=== PATIENT | female | born 1960 | race Hispanic/Latino ===

== ENCOUNTER 2017-08-31 10:39 | Observation (INO) | payer OTHER ==
[2017-08-31 10:40] VITALS: BMI 22.7
--- NOTE | 2017-08-31 12:03 | ED PDOC ---
Upper Extremity Pain/Injury Time Seen by Provider: 08/31/17 10:55 Chief Complaint (Nursing): Finger,Hand,&Wrist Chief Complaint (Provider): Wrist injury History Per: Patient History/Exam Limitations: no limitations Onset/Duration Of Symptoms: Days (today) Current Symptoms Are (Timing): Still Present Additional Complaint(s): Pt. was walking and accidentally fell on the side walk landing on her left forearm/wrist. Has pain to the wrist. Did not hit her head on the ground. No numbness, tingles. Pt. went home to drop off her stuff and came to the ED. Pt. has no pain elsewhere. Past Medical History Reviewed: Nursing Documentation, Vital Signs Vital Signs: Last Vital Signs Temp 987.6 F H 08/31/17 10:41 Pulse 63 08/31/17 10:41 Resp 16 08/31/17 10:41 BP 123/79 08/31/17 10:41 Pulse Ox 97 08/31/17 10:41 - Medical History PMH: No Chronic Diseases - Surgical History Surgical History: No Surg Hx - Family History Family History: States: Unknown Family Hx - Living Arrangements Living Arrangements: With Family - Social History Current smoker - smoking cessation education provided: No - Allergies Allergies/Adverse Reactions: Allergies Allergy/AdvReac Type Severity Reaction Status Date / Time No Known Allergies Allergy Verified 08/31/17 10:58 Review of Systems Constitutional: Negative for: Weakness Eyes: Negative for: Pain ENT: Negative for: Ear Pain Cardiovascular: Negative for: Chest Pain Respiratory: Negative for: Shortness of Breath Gastrointestinal: Negative for: Nausea, Vomiting Musculoskeletal: Negative for: Neck Pain, Shoulder Pain, Arm Pain, Back Pain, Leg Pain Skin: Negative for: Rash Neurological: Negative for: Weakness, Numbness Physical Exam - Reviewed Vital Signs Reviewed: Yes - Physical Exam Appears: Positive for: Non-toxic, No Acute Distress Head Exam: Positive for: ATRAUMATIC, NORMAL INSPECTION, NORMOCEPHALIC Neck: Positive for: Normal, Painless ROM, Supple Cardiovascular/Chest: Positive for: Regular Rate, Rhythm Respiratory: Positive for: CNT, Normal Breath Sounds Pulses-Radial (L): 2+ Back: Positive for: Normal Inspection. Negative for: L CVA Tenderness, R CVA Tenderness Extremity: Positive for: Tenderness (L wrist with limited ROM due to pain), Deformity, Other (no tenderness to hand L). Negative for: Pedal Edema Neurologic/Psych: Positive for: Alert, Oriented, Other (sensations intact left hand and wrist) - ECG O2 Sat by Pulse Oximetry: 97 Pulse Ox Interpretation: Normal - Progress ED Course And Treament: 1252: Pt. with fx. Dr. Peñaloza reviewed images on text. Wants admit and possible surgery in AM. Spoke with Dr. Chisholm. Will admit. Procedures - Splinting Location: L wrist Hand-Made Type: orthoglass Splint: volar Pre-Proc Neuro Vasc Exam: normal Post-Proc Neuro Vasc Exam: normal Disposition - Clinical Impression Clinical Impression: Fracture of wrist - Patient ED Disposition Is Patient to be Admitted: Yes Counseled Patient/Family Regarding: Studies Performed, Diagnosis - Disposition Disposition Time: 13:03 Condition: FAIR - POA Present On Arrival: Falls Or Trauma
[2017-08-31] MEDS ORDERED: Sodium Chloride 0.9% 500 ML IV STA (12:51)
--- NOTE | 2017-08-31 13:39 | CP.PCM.HP ---
History of Present Illness - History of Present Illness History of Present Illness: Allergies ; NKDA PMH : none Medications ; None Surgery ; none Family history ; Father had clotting disorder Social history ; Lives in [place] with , works as layout designer, denies smoking or drug abuse, consumes alcohol only socially . ROS ; 14 point review of system negative except above PMD :Dr Clotilde Gilbert Present on Admission - Present on Admission Any Indicators Present on Admission: No Review of Systems - Review of Systems All systems: reviewed and no additional remarkable complaints except Past Patient History - Infectious Disease Hx of Infectious Diseases: None - Tetanus Immunizations Tetanus Immunization: Unknown - Past Medical History & Family History Past Medical History?: No - Past Social History Smoking Status: Never Smoked Chewing Tobacco Use: No Cigar Use: No Alcohol: None Home Situation {Lives}: With Family Domestic Violence: Negative - PSYCHIATRIC Hx Substance Use: No - SURGICAL HISTORY Hx Surgeries: No Meds Allergies/Adverse Reactions: Allergies Allergy/AdvReac Type Severity Reaction Status Date / Time No Known Allergies Allergy Verified 08/31/17 10:58 Physical Exam - Constitutional Appears: Non-toxic, No Acute Distress - Head Exam Head Exam: ATRAUMATIC, NORMAL INSPECTION, NORMOCEPHALIC - Eye Exam Eye Exam: EOMI, Normal appearance, PERRL Pupil Exam: NORMAL ACCOMODATION - ENT Exam ENT Exam: Mucous Membranes Moist, Normal Exam - Neck Exam Neck exam: Positive for: Full Rom, Normal Inspection - Respiratory Exam Respiratory Exam: Clear to Auscultation Bilateral, NORMAL BREATHING PATTERN. absent: Rales, Rhonchi, Wheezes - Cardiovascular Exam Cardiovascular Exam: REGULAR RHYTHM, RRR, +S1, +S2. absent: JVD - GI/Abdominal Exam GI & Abdominal Exam: Normal Bowel Sounds, Soft. absent: Distended, Guarding, Rebound, Tenderness - Rectal Exam Rectal Exam: Deferred - Extremities Exam Extremities exam: Positive for: normal inspection, pedal pulses present. Negative for: calf tenderness, pedal edema Additional comments: left wrist swelling and deformity - Back Exam Back exam: NORMAL INSPECTION - Neurological Exam Neurological exam: Alert, CN II-XII Intact, Oriented x3, Reflexes Normal - Psychiatric Exam Psychiatric exam: Normal Affect, Normal Mood - Skin Skin Exam: Dry, Intact, Normal Color, Warm Results - Vital Signs Recent Vital Signs: Last Vital Signs Temp 987.6 F H 08/31/17 10:41 Pulse 63 08/31/17 10:41 Resp 16 08/31/17 10:41 BP 123/79 08/31/17 10:41 Pulse Ox 97 08/31/17 13:04 - Labs Result Diagrams: 08/31/17 13:37 08/31/17 13:37 - EKG Data EKG shows normal: Sinus rhythm Rate: Normal - EKG Data When Compared to Previous EKG: No Significant Change - Imaging and Cardiology wrist xray Additional comment: Comminuted intra-articular fracture distal radius with volar angulation of the distal fragments. Surrounding soft tissue swelling. Assessment & Plan - Assessment and Plan (Free Text) Assessment: 56 y/o female with no PMH , very active presented to ER for evaluation of pain to left wrist . As per patient she tripped and fell over the curb side hitting the left wrist trying to brake the fall. She denies any trauma to the head or any other part of her body. Denies any LOC. She presented to Er complaining of pain and deformity to left wrist . She denies any chest pain , SOB, palpitations, PND, orthopnea, urinary symptoms or changes in bowel movements. Xray of left wrist showed Comminuted intra- articular fracture distal radius with volar angulation of the distal fragments. Surrounding soft tissue swelling. Patient to be placed under observation in med/surg and ortho to be consulted . 1. Comminuted fracture of distal radius place patient under observation in med/surg Ortho consulted . Plan for OR in AM keep NPO past midnight Pain management EKG , CXR and labs reviewed . patiet is low risk for surgical intervention 2. DVT prophylaxis SCD
[2017-08-31 13:42] LABS: BASO % 0.3 % (0.0-2.0); EOS % 0.6 % (0.0-4.0); HEMOGLOBIN 14.9 g/dL (12.0-16.0); LYMPH # 0.9 K/uL (1.0-4.3); MEAN CORPUSCULAR HEMOGLOBIN 31.7 pg (27.0-31.0); MEAN CORPUSCULAR HGB CONC 33.4 g/dL (33.0-37.0); MEAN PLATELET VOLUME 7.9 fl (7.2-11.7); MONO # 0.3 K/uL (0.0-0.8); MONO % 4.8 % (0.0-10.0); NEUT # 5.4 K/uL (1.8-7.0); NEUT % 80.3 % (50.0-75.0); NRBC % 0.1 % (0.0-0.0); RBC 4.69 Mil/uL (3.80-5.20); RED CELL DISTRIBUTION WIDTH 13.7 % (11.5-14.5); WHITE BLOOD COUNT 6.7 K/uL (4.8-10.8)
[2017-08-31 13:50] LABS: BLOOD UREA NITROGEN 14 mg/dl (7-17); GFR AFRICAN-AMERICAN > 60; GFR NON-AFRICAN AMERICAN > 60
[2017-08-31 13:54] LABS: PROTHROMBIN TIME 10.6 Seconds (9.8-13.1)
[2017-08-31 13:55] LABS: PARTIAL THROMBOPLASTIN TIME 28.7 Seconds (25.6-37.1)
--- NOTE | 2017-08-31 15:19 | RAD ---
PROCEDURE: Left wrist dated 08/31/2017 Four views of the left wrist performed HISTORY: Pain COMPARISON: None. FINDINGS: BONES: Current study reveals a comminuted intra-articular fracture distal left radius with volar angulation of the distal fragments. Tiny corticated density adjacent to the distal ulna styloid with what may represent some mild posttraumatic mineralization. Moderate surrounding soft tissue swelling. 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 Mild triscaphe degenerative osteoarthritis also felt be present. SOFT TISSUES: As above OTHER FINDINGS: None. IMPRESSION: Comminuted intra-articular fracture distal radius with volar angulation of the distal fragments. Surrounding soft tissue swelling. See above discussion for additional details and findings
--- NOTE | 2017-08-31 15:25 | RAD ---
HISTORY: Wrist injury. COMPARISON: No prior. FINDINGS: LUNGS: No active pulmonary disease. Questionable minimal pleural thickening right lung apex PLEURA: As above. No effusion or pneumothorax apparent. CARDIOVASCULAR: Normal. OSSEOUS STRUCTURES: No significant abnormalities. VISUALIZED UPPER ABDOMEN: Normal. OTHER FINDINGS: None. IMPRESSION: No acute consolidation.
[2017-08-31] MEDS ORDERED: Morphine 4 MG/ML VIAL IVP PRN (17:14)
[2017-09-01] MEDS: Sodium Chloride 0.9% 1,000 ML IV SCH ×3 (00:04→20:00)
[2017-09-01 00:26] LABS: SQUAMOUS EPITHIAL < 1 /hpf (0-5); URINE BACTERIA RARE (<OCC); URINE BILIRUBIN NEGATIVE (NEGATIVE); URINE BLOOD NEGATIVE (NEGATIVE); URINE CLARITY SLIGHTY-CLOUDY (Clear); URINE COLOR YELLOW (YELLOW); URINE GLUCOSE (UA) NEG (Normal); URINE LEUKOCYTE ESTERASE NEG Leu/uL (Negative); URINE PROTEIN NEGATIVE (NEGATIVE); URINE UROBILINOGEN 0.2-1.0 mg/dL (0.2-1.0)
[2017-09-01 07:27] LABS: BASO % 0.4 % (0.0-2.0); EOS # 0.1 K/uL (0.0-0.7); EOS % 1.9 % (0.0-4.0); HEMOGLOBIN 13.2 g/dL (12.0-16.0); LYMPH # 1.6 K/uL (1.0-4.3); LYMPH % 26.3 % (20.0-40.0); MEAN CELL VOLUME 94.9 fl (81.0-99.0); MEAN CORPUSCULAR HEMOGLOBIN 32.3 pg (27.0-31.0); MEAN PLATELET VOLUME 8.4 fl (7.2-11.7); MONO # 0.5 K/uL (0.0-0.8); MONO % 8.3 % (0.0-10.0); NEUT # 3.8 K/uL (1.8-7.0); NEUT % 63.1 % (50.0-75.0); RBC 4.08 Mil/uL (3.80-5.20); RED CELL DISTRIBUTION WIDTH 13.8 % (11.5-14.5); WHITE BLOOD COUNT 6.1 K/uL (4.8-10.8)
[2017-09-01] MEDS ORDERED: Midazolam 2 MG/2 ML VIAL ONE (07:36)
[2017-09-01] MEDS ORDERED: Lidocaine 4% (Laryng-O-Jet) Kit MM ONE (07:36)
[2017-09-01] MEDS ORDERED: Propofol 10 mg/ml Inj (20 ML) ONE (07:36)
[2017-09-01] MEDS ORDERED: Succinylcholine 200 mg/10 ml Inj IV ONE (07:36)
[2017-09-01] MEDS ORDERED: Rocuronium 10 mg/ml (5 ml) ONE (07:36)
[2017-09-01] MEDS ORDERED: Ropivacaine 0.5% 30ML IV ONE (07:47)
[2017-09-01] MEDS ORDERED: Bupivacaine HCl 0.5% PF (30 ml) Inj ONE (07:47)
[2017-09-01 07:58] LABS: BLOOD UREA NITROGEN 11 mg/dl (7-17); GFR AFRICAN-AMERICAN > 60; GFR NON-AFRICAN AMERICAN > 60
[2017-09-01] MEDS ORDERED: ceFAZolin IV 2 gm in Dextrose 2 GM/50 ML BAG IVPB ONE (08:01)
[2017-09-01] MEDS ORDERED: ePHEDrine 50 mg/ml Inj ONE (08:44)
--- NOTE | 2017-09-01 09:45 | CARD ---
APPROVED REPORT EKG Measurement Heart [id number] <Conclusion> Sinus bradycardia Otherwise normal ECG artefact present
[2017-09-01] MEDS ORDERED: Dexamethasone 4 mg/1 ml ONE (09:55)
[2017-09-01] MEDS ORDERED: Lactated Ringer's 1,000 ML IV ONE ×2 (10:00→10:05)
--- NOTE | 2017-09-01 10:53 | PCM.SURG1 ---
Surgeon's Initial Post Op Note - Surgeon's Notes Surgeon: Anabela Branch Specialist: YEHUDA Farah Type of Anesthesia: General Endo, Block Regional Anesthesia Administered By: DR Trell BORJA Pre-Operative Diagnosis: Displaced/comminuted/angulated intrarticular fx distal radius Operative Findings: as above with 3 intrarticular fragments Post-Operative Diagnosis: displaced/comminuted/angulated intraarticular dital radius fx. 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 release transevrse carpal ligament( carpal tunnel release). partial median neuirolysis/partial; flexor tenosynovectomy. intraarticular injection. apllx volar splint Specimen/Specimens Removed: synvium/epineurium/ fx callous Estimated Blood Loss: EBL {In ML}: 5 Blood Products Given: N/A Drains Used: No Drains Post-Op Condition: Good Date of Surgery/Procedure: 09/01/17 Time of Surgery/Procedure: 09:10 (829- time in room/[email or web address] indcution time)
[2017-09-01] MEDS ORDERED: Bacitracin OINT 15GM TOP ONE (10:55)
[2017-09-01] MEDS ORDERED: HYDROmorphone 0.5 mg/0.5 ml ISec IVP PRN (11:17)
--- NOTE | 2017-09-01 11:17 | PCM.ANESB4 ---
Infraclavicular Block - Femoral Nerve Block Date of Procedure: 09/01/17 Anesthesiologist: Edwardo Pre-Procedure Diagnosis: Left wrist fracture Post-Procedure Diagnosis: Same Procedure Performed: Brachial Plexus at the Infraclavicular area Left - Procedure Infraclavicular Block: The procedure was explained to the patient that it is for the post-operative pain management. Consent was obtained after a thorough discussion with the patient regarding the benefits and possible complications of local anesthetic block of the brachial plexus at the infraclavicular area. The patient was brought to the operating room and standard monitors were applied. Time-out was held with the circulating nurse to confirm the correct surgery and the appropriate block. After applying oxygen by nasal cannula and administering IV Sedation, patient's head was gently rotated away from the operative ____left___ _ shoulder and the area medial to the coracoid process and inferior to the clavicle was carefully palpated. The ultrasound transducer was then applied to the skin in the transverse plane and the brachial plexus was visualized surrounding the axillary artery and deep to the pectoralis major and minor muscles. After thorough identification, this area was prepped with Betadine solution three times and 1 % Lidocaine was injected subcutaneously for topical anesthesia. At this point, a #21 gauge Stimuplex 4-inch needle was inserted cephalad to the ultrasound transducer and inferior to the clavicle in-plane towards the posterior aspect of the axillary artery. Needle advancement was performed carefully under ultrasound visualization. Nerve stimulator was used and twitch of the affected extremity including fingers, hand, wrist and elbow was obtained at current of __0.4___MA. After repeated negative aspiration, __20___cc of __.5_ __% bupivcaine was injected and this was followed with ___10 ___ cc of ___.5____ % ____ropivacaine . Under ultrasound guidance the local anesthetics were observed surrounding the cords of the brachial plexus. The needle was removed intact and sterile dressing was applied. The patient had stable vital signs, was conscious and in no apparent distress. The patient tolerated the infraclavicular block of the brachial plexus well with stable vital signs was prepared for subsequent surgery.
--- NOTE | 2017-09-01 11:30 | RAD ---
PROCEDURE: Intraoperative Fluoroscopy. HISTORY: Fluoroscopy FINDINGS: Fluoroscopic assistance was provided Please refer to the operative report for additional details.
--- NOTE | 2017-09-01 12:11 | CP.PCM.DIS ---
Provider - Provider Date of Admission: 08/31/17 12:42 Attending physician: Yuval Chisholm MD Time Spent in preparation of Discharge (in minutes): 30 Diagnosis - Discharge Diagnosis (1) Fracture of wrist Status: Acute Hospital Course - Lab Results Lab Results: Most Recent Lab Values WBC 6.1 K/uL (4.8-10.8) 09/01/17 05:10 RBC 4.08 Mil/uL (3.80-5.20) 09/01/17 05:10 Hgb 13.2 g/dL (12.0-16.0) 09/01/17 05:10 Hct 38.7 % (34.0-47.0) 09/01/17 05:10 MCV 94.9 fl (81.0-99.0) 09/01/17 05:10 MCH 32.3 pg (27.0-31.0) H 09/01/17 05:10 MCHC 34.0 g/dL (33.0-37.0) 09/01/17 05:10 RDW 13.8 % (11.5-14.5) 09/01/17 05:10 Plt Count 254 K/uL (130-400) 09/01/17 05:10 MPV 8.4 fl (7.2-11.7) 09/01/17 05:10 Neut % (Auto) 63.1 % (50.0-75.0) 09/01/17 05:10 Lymph % (Auto) 26.3 % (20.0-40.0) 09/01/17 05:10 [place] % (Auto) 8.3 % (0.0-10.0) 09/01/17 05:10 Eos % (Auto) 1.9 % (0.0-4.0) 09/01/17 05:10 Baso % (Auto) 0.4 % (0.0-2.0) 09/01/17 05:10 Neut # (Auto) 3.8 K/uL (1.8-7.0) 09/01/17 05:10 Lymph # (Auto) 1.6 K/uL (1.0-4.3) 09/01/17 05:10 [place] # (Auto) 0.5 K/uL (0.0-0.8) 09/01/17 05:10 Eos # (Auto) 0.1 K/uL (0.0-0.7) 09/01/17 05:10 Baso # (Auto) 0.0 K/uL (0.0-0.2) 09/01/17 05:10 PT 10.6 Seconds (9.8-13.1) 08/31/17 13:37 INR 1.0 (0.9-1.2) 08/31/17 13:37 APTT 28.7 Seconds (25.6-37.1) 08/31/17 13:37 Sodium 142 mmol/l (132-148) 09/01/17 05:10 Potassium 3.7 MMOL/L (3.6-5.0) 09/01/17 05:10 Chloride 105 mmol/L (98-107) 09/01/17 05:10 Carbon Dioxide 26 mmol/L (22-30) 09/01/17 05:10 Anion Gap 15 (10-20) 09/01/17 05:10 BUN 11 mg/dl (7-17) 09/01/17 05:10 Creatinine 0.7 mg/dl (0.7-1.2) 09/01/17 05:10 Est GFR ( Amer) > 60 09/01/17 05:10 Est GFR (Non-Af Amer) > 60 09/01/17 05:10 Random Glucose 90 mg/dL (65-105) 09/01/17 05:10 Calcium 9.0 mg/dL (8.4-10.2) 09/01/17 05:10 Troponin I < 0.0120 ng/mL (0.00-0.120) 08/31/17 13:37 Urine Color Yellow (YELLOW) 09/01/17 00:07 Urine Clarity Slighty-cloudy (Clear) 09/01/17 00:07 Urine pH 5.0 (5.0-8.0) 09/01/17 00:07 Ur Specific [place] 1.025 (1.003-1.030) 09/01/17 00:07 Urine Protein Negative mg/dL (NEGATIVE) 09/01/17 00:07 Urine Glucose (UA) Neg mg/dL (Normal) 09/01/17 00:07 Urine Ketones Negative mg/dL (NEGATIVE) 09/01/17 00:07 Urine Blood Negative (NEGATIVE) 09/01/17 00:07 Urine Nitrate Negative (NEGATIVE) 09/01/17 00:07 Urine Bilirubin Negative (NEGATIVE) 09/01/17 00: Urine Urobilinogen 0.2-1.0 mg/dL (0.2-1.0) 09/01/17 00:07 Ur Leukocyte Esterase Neg Tam/uL (Negative) 09/01/17 00:07 Urine RBC (Auto) 4 /hpf (0-3) H 09/01/17 00:07 Urine Microscopic WBC 4 /hpf (0-5) 09/01/17 00: Ur Squamous Epith Cells < 1 /hpf (0-5) 09/01/17 00: Urine Bacteria Rare (<OCC) 09/01/17 00: - Hospital Course Hospital Course: 56 y/o female with no PMH , very active presented to ER for evaluation of pain to left wrist . As per patient she tripped and fell over the curb side hitting the left wrist trying to brake the fall. She denies any trauma to the head or any other part of her body. Denies any LOC. She presented to Er complaining of pain and deformity to left wrist . She denies any chest pain , SOB, palpitations, PND, orthopnea, urinary symptoms or changes in bowel movements. Xray of left wrist showed Comminuted intra- articular fracture distal radius with volar angulation of the distal fragments. Surrounding soft tissue swelling. Patient to be placed under observation in med/surg and ortho to be consulted . s/p repair with Dr. Peñaloza. Doing well post op, stable to discharge home, to follow up with PCP in one week as well as ortho. Discharge Exam - Head Exam Additional comments: Vitals Reviewed GEN: WDWN, alert, cooperative HEENT: NCAT, PERRL, EOMI HEART: RRR, +S1S2, NO MRG LUNG: CTAB, NO WRR ABD: soft, NT, ND, No HSM, No masses EXT: normal pedal pulses, normal capillary refill NEURO: awake, alert, no focal deficits SKIN: warm, dry PSYCH: normal mood, normal affect Discharge Plan - Follow Up Plan Condition: FAIR Disposition: HOME/ ROUTINE Additional Instructions: follow up with ortho and pcp in one week
--- NOTE | 2017-09-01 14:30 | RAD ---
PROCEDURE: Left wrist dated 09/01/2017 Three views of the left wrist performed HISTORY: Status post ORIF left wrist COMPARISON: None. FINDINGS: BONES: Current study reveals ORIF changes comminuted fracture distal left radius. Sideplate and screws have been attached to the volar aspect of the left radius there is adequate alignment JOINTS: Joint spaces preserved. SOFT TISSUES: Soft expected postoperative changes including soft tissue swelling and a small amount subcutaneous air present. OTHER FINDINGS: None. IMPRESSION: Status post ORIF comminuted fracture distal radius as above with expected postoperative changes in the surrounding soft tissues
[2017-09-01] MEDS: Pantoprazole 40 mg EC Tab PO SCH (16:00)
--- NOTE | 2017-09-01 17:27 | OP ---
PROCEDURE DATE: 09/01/2017 SURGEON: Watson Peñaloza MD CUTTER OUT: Tessa Joiner, certified registered nursing sound assistant. ANESTHESIA: General endotracheal and regional block anesthesia. ANESTHESIA ADMINISTERED BY: Dr. Trell Brooke. PREOPERATIVE DIAGNOSIS: Displaced comminuted angulated intra-articular fracture of the distal radius, at least three intra-articular fragments. OPERATIVE FINDINGS: Displaced comminuted angulated intra-articular fracture of the left distal radius with three intra-articular fragments. POSTOPERATIVE DIAGNOSES: 1. Median nerve compression and post-traumatic carpal tunnel syndrome. 2. Displaced angulated distal radius fracture with three intra-articular fragments. 3. Carpal tunnel syndrome post-traumatic. OPERATION PERFORMED: 1. ORIF, displaced comminuted three-part intra-articular distal radius fracture. 2. Release of transverse carpal ligament, carpal tunnel release. 3. Partial median neurolysis. 4. Partial flexor tenosynovectomy. 5. Application of volar splint. SPECIMENS REMOVED: Synovium, epineurium, fracture callus. BLOOD LOSS: 5 mL. BLOOD PRODUCTS: No blood products given. DRAINS: No drains. POSTOPERATIVE CONDITION: Stable. TIME OF SURGERY: 8:30. Time in the room 9:10 incision time. OPERATIVE INDICATIONS: Trinity Gaytan is a 56-year-old woman, who presents after a fall on an outstretched hand when leaving the gym at [place] yesterday. The patient presented to the Emergency Room. There was swelling. The patient was admitted. Evaluation of the fracture was accomplished. Pros, cons, risks, and benefits of various treatment options were discussed, benign neglect, closed reduction and pin fixation, open reduction and internal fixation. 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 The possibility of stiffness, mechanical failure, nerve injury, infection, thromboembolic disease, secondary or tertiary surgery is discussed. OPERATIVE PROCEDURE: After having obtained informed consent, after having identified side, site, and procedure, the left upper extremity, critical pause/time-out after the satisfactory induction of the anesthetic, the patient identified as Trinity Gaytan in the supine position with all bony prominences well padded, the left upper extremity was prepped and free draped in usual fashion for upper extremity surgery. The tourniquet had been applied, but was not yet inflated. After sterilely prepping and draping, after having identified side, site, and procedure, and a critical pause/time-out, after sterilely prepping and draping, the left upper extremity was exsanguinated using a 4-inch Esmarch bandage, tourniquet, which had been applied, was inflated to 250 mmHg. An incision was described beginning in the median palmar crease deviating laterally, proximally, and in fact ulnarly proximally to the proximal wrist crease and migrating proximal to the forearm between the palmaris longus and the flexor carpi radialis. The skin incision was carried down through the skin and subcutaneous tissue. A flap was elevated at the transverse carpal ligament and the hemostasis was controlled very carefully with the bipolar. The stay suture was placed. The entire extent of the transverse carpal ligament was identified. The palmar aponeurosis was divided. The entire extent of the transverse palmar ligament was divided, and the dissection was carried out to the distal forearm. At this point in time, the median nerve was identified. It was found to be compressed. The transverse carpal ligament had been released, and there was an area of compression of the median nerve. A careful partial median neurolysis was accomplished under eyeglass magnification. A partial median neurolysis was accomplished. A partial flexor tenosynovectomy was accomplished as well as there was an exuberant tenosynovitis. At this point, the dissection was carried around to the area of the pronator quadratus muscle. The fracture site was identified. There was found to be three intra-articular fragments. Please refer to the intraoperative x-rays and the fluoroscopy. This having been accomplished, the fracture was reduced very carefully so as not to damage any further the comminuted nature of the fracture. The patient, although she exercises regularly, has very osteopenic poor quality bone. The fracture was reduced and held with a K-wire entering the skin from the radial aspect in the area of the radial styloid. This having been accomplished, the volar AO locking plate was applied to the volar aspect of the distal radius taking great care that the distal screws will not enter the joint. The central screw and the plate is drilled with a 2.0 drill bit followed by sounding with depth gauge to the appropriate size, and non-locking screws placed, allowing the plate to be positioned in an optimal fashion. This having been accomplished, each sequential drill was now placed and the drill hole was placed in the locking mode. The collets were placed towards the distal row. Each sequential collet was drilled, sounded with the depth gauge and the appropriate size screw was placed. Attention was now turned to the proximal aspect of the plate. Drilling was accomplished followed by sounding with the depth gauge and three 12-mm screws were placed proximally to allow fixation. The fixation was found to be acceptable. At this point in time, irrigation was accomplished, and after that allograft bone grafting was accomplished. Verification of position was offered on AP and lateral image intensification views. Closure was in layers with interrupted Vicryl and proximally in the forearm with concepcion and nylon. Jose Antonio Ba compression dressing and volar splint were applied. Verification of position was offered on AP and lateral image intensification views and found to be acceptable. The patient was comfortable in recovery and did receive an upper extremity block. Watson Peñaloza MD
[2017-09-02 07:33] VITALS: BP 111/74; PULSE 62; RESP 19; TEMP 97.8; O2SAT 96
[2017-09-02] MEDS: Pantoprazole 40 mg EC Tab PO SCH (08:30)
== END 2017-09-02 11:18 | disposition home or self-care (01) ==
LOC: H.ER 10:39 → H.ERHOLD 12:42 → H.MEDSURG1 15:32
PROVIDERS: ADMIT Hospitalist; ATTEND Hospitalist
DX: S52.572A Other intraarticular fracture of lower end of left radius, initial encounter for closed fracture (principal); G56.02 Carpal tunnel syndrome, left upper limb; M65.9 Synovitis and tenosynovitis, unspecified; W10.1XXA Fall (on)(from) sidewalk curb, initial encounter; Z83.2 Family history of diseases of the blood and blood-forming organs and certain disorders involving the immune mechanism; R20.0 Anesthesia of skin
CPT/HCPCS: 25609; 26145; 36415; 64415; 64721; 64727; 71045; 73110; 80048; 81003; 84484; 85025; 85610; 85730; 88304; 93005; 96360; 96361; 96372; 99284; C1713; G0378; J0330; J0690; J1100; J1885; J2001; J2250; J2270; J2405; J2704; J3010; J7030; J7040; J7120